=== PATIENT | male | born 2005 | race Caucasian/White ===

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

== ENCOUNTER 2024-02-05 21:59 | Emergency (ER) | payer BC ==
[2024-02-05] MEDS ORDERED: Ketorolac 30 MG/ML SDV IM PRN (23:10)
[2024-02-05] MEDS ORDERED: Acetaminophen 500 MG Tab PO PRN (23:10)
== END 2024-02-05 23:30 | disposition home or self-care (01) ==
LOC: MW.ED 21:59
DX: K64.4 Residual hemorrhoidal skin tags (principal); K59.00 Constipation, unspecified; Z79.899 Other long term (current) drug therapy
CPT/HCPCS: 99283